=== PATIENT | female | born 1955 | race Caucasian/White ===

== ENCOUNTER 2017-10-07 07:25 | Emergency (ER) | payer MEDICAID ==
[~2017-10-07] VITALS: Ht 154.9 cm; Wt 94.3 kg
[2017-10-07 07:29] VITALS: BP 159/71
--- NOTE | 2017-10-07 07:33 | NUR ---
PT AMBULATED TO BED 11.
--- NOTE | 2017-10-07 07:36 | NUR ---
PT AMBULATED TO BED 11
--- NOTE | 2017-10-07 07:36 | NUR ---
62F BIB DAUGHTER C/O PRODUCTIVE COUGH AT NIGHT, BODY ACHES & FEVER X 3 DAYS WITH VOMITING X THIS MORNING. PT TOOK TYLENOL AT 0500 AM THIS AM. HX: PT DENIES. SKIN IS PINK/WARM/DRY; AAOX4 WITH EVEN AND STEADY GAIT; LUNGS CLEAR BL; PT DENIES ANY FEVER, CP, SOB, OR COUGH AT THIS TIME; PATIENT STATES PAIN OF 10/10 AT THIS TIME; PATIENT POSITIONED FOR COMFORT; HOB ELEVATED; BEDRAILS UP X2; BED DOWN. ER MADE AWARE OF PT STATUS. Addendum: 10/07/17 at 0813 by MED1 Patient being evaluated by DR BARCENAS at bedside.
--- NOTE | 2017-10-07 07:38 | NUR ---
FLU SWAB SPECIMEN SENT TO LAB.
[2017-10-07] MEDS ORDERED: NACL 0.9% 1,000 ML IV ONE (07:40)
[2017-10-07] MEDS ORDERED: ONDANSETRON 4 MG/2 ML VIAL IVP ONE (07:40)
[2017-10-07 08:00] LABS: BASOPHILS # (AUTO) 0.1 K/uL (0.00-0.22); EOSINOPHILS % (AUTO) 0.3 % (0.0-4.0); HEMATOCRIT 41.4 % (36-48); HEMOGLOBIN 13.4 g/dL (12.0-16.0); LYMPHOCYTES # (AUTO) 1.4 K/uL (2.5-16.5); LYMPHOCYTES % (AUTO) 9.4 % (20.5-51.1); MEAN CORPUSCULAR HEMOGLOBIN 26 pg (27-31); MEAN CORPUSCULAR HGB CONC 32 g/dL (33-37); MEAN CORPUSCULAR VOLUME 81 fL (80-94); MONOCYTES # (AUTO) 1.7 K/uL (0.8-1.0); MONOCYTES % (AUTO) 11.5 % (1.7-9.3); NEUTROPHILS # (AUTO) 11.4 K/uL (1.8-7.7); NEUTROPHILS % (AUTO) 77.8 % (42.2-75.2); PLATELET COUNT (AUTO) 241 K/uL (140-450); RED BLOOD CELL COUNT(AUTO) 5.11 MIL/uL (4.20-5.40); RED CELL DISTRIBUTION WIDTH 12.8 % (11.6-13.7); WHITE BLOOD COUNT (AUTO) 14.6 K/uL (4.8-10.8)
--- NOTE | 2017-10-07 08:04 | NUR ---
XRAY AT BEDSIDE
--- NOTE | 2017-10-07 08:06 | NUR ---
Ophelia callahan in [facility] - 10/07/17 at 0807 by MED1 x ray at bedside.
[2017-10-07 08:38] LABS: ANION GAP 14.1 (8-16); CARBON DIOXIDE 25.8 mmol/L (21-32); CREATININE 0.8 mg/dL (0.6-1.3); POTASSIUM 3.9 mmol/L (3.5-5.1)
--- NOTE | 2017-10-07 08:41 | NUR ---
Patient appears to be resting comfortably in bed. BP 138/70. Respirations even and unlabored. DENIES FONSECA AT THIS TIME.WILL CONTINUE TO MONITOR.
[2017-10-07 08:46] LABS: ALBUMIN 3.4 g/dL (3.4-5.0)
[2017-10-07] MEDS ORDERED: IBUPROFEN 800 MG TAB PO ONE (09:10)
[2017-10-07] MEDS ORDERED: SULFAMETH/TRIMETH DS 800/160MG 1 TAB PO ONE (09:10)
[2017-10-07 09:30] VITALS: BP 139/72
--- NOTE | 2017-10-07 09:30 | NUR ---
Patient discharged with BP 139/76 DENIES FONSECA AT THIS TIME. Written and verbal after care instructions given and explained. Patient alert, oriented and verbalized understanding of instructions. Ambulatory with steady gait. All questions addressed prior to discharge. ID band removed. Patient advised to follow up with PMD. Rx of IBUPROFEN & BACTRIM given. Patient educated on indication of medication including possible reaction and side effects. Opportunity to ask questions provided and answered.
== END 2017-10-07 09:30 | disposition home or self-care (01) ==
LOC: MED 07:25
DX: J06.9 Acute upper respiratory infection, unspecified (principal); N39.0 Urinary tract infection, site not specified; I10 Essential (primary) hypertension
CPT/HCPCS: 36415; 71045; 80053; 85025; 87804; 96361; 96374; 99285; J2405; J7030

== ENCOUNTER 2019-09-02 17:33 | Emergency (ER) | payer MEDICAID, OTHER ==
[~2019-09-02] VITALS: Ht 154.9 cm; Wt 99.3 kg
[2019-09-02 17:45] VITALS: BP 154/96
--- NOTE | 2019-09-02 17:50 | NUR ---
PT AMBULATED TO BED 05.
--- NOTE | 2019-09-02 17:50 | NUR ---
Ophelia callahan in ED - 09/02/19 at 1751 by MEDSP PT AMBULATED TO ED BED 05
--- NOTE | 2019-09-02 18:32 | NUR ---
Dr. Finney is evaluating the patient at bedside.
--- NOTE | 2019-09-02 18:34 | NUR ---
64 Y/O F C/O COUGHING X 3 WEEKS. PT DENIES N/V/F/D. PT LUNG SOUNDS CLEAR THROUGHOUT. PT ON MONITIOR OXYGEN LEVEL 96% ROOM AIR. NKA
[2019-09-02] MEDS ORDERED: NACL 0.9% 1,000 ML IV ONE (18:35)
[2019-09-02] MEDS ORDERED: KETOROLAC 30 MG/ML VIAL IVP ONE (18:35)
--- NOTE | 2019-09-02 19:07 | NUR ---
XRAY AT BEDSIDE.
--- NOTE | 2019-09-02 19:15 | NUR ---
REPORT GIVEN FROM MITZI CERRATO. AAO X 4. PT RESTING IN BED EYES OPEN RESPIRATIONS ARE EVEN AND UNLABORED. PT ON NC 2L. O2SAT @ 96%. PT NOTED WIHT NON-PRODUCTIVE COUGH. DAUGHTER AT BEDSIDE. WILL CONTINUE TO MONITOR.
--- NOTE | 2019-09-02 19:27 | NUR ---
REPORT GIVEN TO SAQIB YORK FOR CHANGE OF SHIFT.
[2019-09-02] MEDS ORDERED: LEVOFLOXACIN 500 MG/D5W PREMIX 100 ML IV ONE (19:30)
--- NOTE | 2019-09-02 20:20 | NUR ---
IV PLACED IN R HAND 24G. IV SITE IS PATENT BLOOD RETURN NOTED. NO SWELLING OR PAIN NOTED. TORADOL IVP GIVEN. NS 0.9% 1L BOLUS FLOWING CONTINOUSLY. IVPB LEVAQUIN 500MG RUNNING @ 100ML/HR. WILL CONTINUE TO MONITOR.
--- NOTE | 2019-09-02 21:15 | NUR ---
PT IV FLUIDS AND LEVAQUIN COMPLETE. PT HAS 0/10 PAIN. RESPIRATIONS ARE EVEN AND UNLABORED. O2SAT @ 97% ON RA. SKIN IS WARM AND DRY TO TOUCH. PT VVS ARE STABLE. PT DAUGHTER AT BEDSIDE.
--- NOTE | 2019-09-02 21:30 | NUR ---
Patient discharged with v/s stable. Written and verbal after care instructions given and explained. Patient alert, oriented and verbalized understanding of instructions. Ambulatory with steady gait. All questions addressed prior to discharge. ID band removed. Patient advised to follow up with PMD. Rx of WILLIAM SAINI given. Patient educated on indication of medication including possible reaction and side effects. Opportunity to ask questions provided and answered.
[2019-09-02 21:32] VITALS: BP 138/88
== END 2019-09-02 21:30 | disposition home or self-care (01) ==
LOC: MED 17:33
DX: J40 Bronchitis, not specified as acute or chronic (principal); I10 Essential (primary) hypertension
CPT/HCPCS: 36415; 71045; 87040; 96365; 96375; 99284; J1885; J1956; J7030; Q0092

== ENCOUNTER 2023-09-12 01:21 | Emergency (ER) | payer OTHER ==
[~2023-09-12] VITALS: Ht 160 cm; Wt 113.4 kg
[2023-09-12 01:35] VITALS: BP 113/62; PULSE 65; RESP 18; TEMP 97.6; O2SAT 98
[2023-09-12 02:16] LABS: APPEARANCE,URINE HAZY (CLEAR); BILIRUBIN,URINE NEGATIVE (NEGATIVE); BLOOD, URINE 3+ (NEGATIVE); COLOR,URINE YELLOW (YELLOW); LEUKOCYTE ESTERASE ,URINE TRACE (NEGATIVE); NITRITE, URINE NEGATIVE (NEGATIVE); PROTEIN,URINE NEGATIVE (NEGATIVE); UGLUCOSE NEGATIVE (NEGATIVE); UROBILINOGEN,URINE 0.2 EU/dL (0.2 - 1)
[2023-09-12 02:18] VITALS: O2SAT 98
[2023-09-12 02:21] LABS: BACTERIA,URINE OCCASSIONAL /HPF (None Seen); CALCIUM OXALATE CRYSTALS,UR 0-2 /HPF (None Seen); RBC,URINE 80-100 /HPF (0-5); SQUAMOUS EPITHELIAL CELL,UR 4-10 (MOD) /LPF (0-3 (FEW)); WBC,URINE 0-5 /HPF (0-5)
[2023-09-12] MEDS: NACL 0.9% 1,000 ML IV ONE (02:37)
[2023-09-12] MEDS: MORPHINE SULFATE 4 MG/ML SYR IVP ONE (02:38)
[2023-09-12] MEDS: ONDANSETRON 4 MG/2 ML VIAL IVP ONE (02:38)
[2023-09-12 03:01] LABS: BASOPHILS % (AUTO) 0.5 % (0.0-2.0); EOSINOPHILS # (AUTO) 0.1 K/uL (0-0.4); EOSINOPHILS % (AUTO) 0.9 % (0.0-4.0); HEMATOCRIT 42.5 % (36-48); LYMPHOCYTES # (AUTO) 2.7 K/uL (2.5-16.5); LYMPHOCYTES % (AUTO) 29.4 % (20.5-51.1); MEAN CORPUSCULAR HEMOGLOBIN 27 pg (27-31); MEAN CORPUSCULAR HGB CONC 33 g/dL (33-37); MEAN CORPUSCULAR VOLUME 82.8 fL (80-94); MONOCYTES # (AUTO) 0.8 K/uL (0.8-1.0); MONOCYTES % (AUTO) 8.5 % (1.7-9.3); NEUTROPHILS # (AUTO) 5.6 K/uL (1.8-7.7); NEUTROPHILS % (AUTO) 60.7 % (42.2-75.2); PLATELET COUNT (AUTO) 272 K/uL (140-450); RED BLOOD CELL COUNT(AUTO) 5.13 MIL/uL (4.20-5.40); RED CELL DISTRIBUTION WIDTH 14.1 % (11.6-13.7); WHITE BLOOD COUNT (AUTO) 9.2 K/uL (4.8-10.8)
[2023-09-12 03:11] LABS: ANION GAP 14.9 (8-16); CARBON DIOXIDE 25.6 mmol/L (21-32); CREATININE 0.8 mg/dL (0.6-1.3); POTASSIUM 3.5 mmol/L (3.5-5.1)
[2023-09-12 03:27] LABS: ALBUMIN 3.3 g/dL (3.4-5.0); BILIRUBIN,DIRECT 0.1 mg/dL (0.0-0.3); TOTAL BILIRUBIN 0.3 mg/dL (0.0-1.0); TOTAL PROTEIN, SERUM 8.4 g/dL (6.4-8.2)
== END 2023-09-12 03:00 | disposition home or self-care (01) ==
LOC: MED 01:21
DX: N23 Unspecified renal colic (principal); I10 Essential (primary) hypertension
CPT/HCPCS: 36415; 74176; 80048; 80076; 81001; 85025; 96361; 96374; 96375; 99285; J2270; J2405; J7030